=== PATIENT | female | born 1985 | race Caucasian/White ===

== ENCOUNTER 2017-10-01 21:40 | Emergency (ER) | payer OTHER ==
[~2017-10-01] VITALS: Ht 160 cm; Wt 73.6 kg
[~2017-10-01 21:40] MED LIST: TESSALON200 MG PO; VENTOLIN HFA18 GM IH
[2017-10-01 22:40] LABS: HEMATOCRIT 48.1 % (36.0-46.0); HEMOGLOBIN 16.3 G/DL (11.9-15.5); MCH 30.2 PG (29.0-34.0); MCHC 33.9 G/DL (30.0-36.0); MCV 89.2 FL (83-99); PLATELET COUNT 264 K/uL (156-360); RBC DIS.WIDTH-CV 11.9 % (11.8-14.6); RBC DIS.WIDTH-SD 38.5 % (39-53); RED BLOOD COUNT 5.39 M/uL (3.80-5.20)
[2017-10-01 22:49] LABS: ALBUMIN 4.7 g/dL (3.2-4.8); CHLORIDE 101 mEq/L (99-109); POTASSIUM 4.2 mEq/L (3.7-5.4); SODIUM 140 mEq/L (136-147)
[2017-10-01 22:52] LABS: GLUCOSE 102 mg/dL (70-99); TOTAL PROTEIN 7.7 g/dL (6.4-8.3)
[2017-10-01 22:53] LABS: APPEARANCE CLOUDY ((CLEAR)); BILIRUBIN SMALL; BLOOD NEGATIVE; COLOR AMBER ((YELLOW)); GLUCOSE (STRIP) NEGATIVE; KETONES 20; LEUKOCYTES NEGATIVE; NITRITE NEGATIVE; PROTEIN (STRIP) 100; SPECIFIC GRAVITY 1.029 (1.000-1.030)
[2017-10-01 22:54] LABS: TOTAL BILIRUBIN 1.4 mg/dL (0.0-1.0)
[2017-10-01 22:55] LABS: ALKALINE PHOSPHATASE 50 IU/L (3-129); CREATININE 0.8 mg/dL (0.6-1.3); GFR ESTIMATE (CALCULATED) > 59 mL/min/
[2017-10-01 22:56] LABS: UREA NITROGEN (BUN) 16 mg/dL (9-23)
[2017-10-01 22:57] LABS: AST (GOT) 14 IU/L (2-34)
[2017-10-01 22:58] LABS: ALT (GPT) 13 IU/L (3-49)
[2017-10-01 23:07] LABS: QUANTITATIVE HCG < 4.0 MIU/ML
[2017-10-01 23:17] LABS: EPITHELIAL CELLS 4+ /HPF; MUCUS RARE /LPF; RED BLOOD CELLS 0-5 /HPF (0-5); UCUL ADDED? YES
[2017-10-01 23:19] LABS: BACTERIA 1+ /HPF
[2017-10-02] MEDS ORDERED: BENTYL10 MG PO (01:30)
[2017-10-02] MEDS ORDERED: ZOFRAN ODT4 MG PO (01:30)
[2017-10-02 01:57] VITALS: BP 137/86
== END 2017-10-02 01:58 | disposition home or self-care (01) ==
LOC: EME 21:40
PROVIDERS: Physician Assistant
DX: K29.70 Gastritis, unspecified, without bleeding (principal); F17.200 Nicotine dependence, unspecified, uncomplicated; Z88.7 Allergy status to serum and vaccine; Z88.1 Allergy status to other antibiotic agents; N83.209 Unspecified ovarian cyst, unspecified side
CPT/HCPCS: 74177; 80053; 81003; 84702; 85027; 87086; 99281; 99284; J2405; J7030; S0028